=== PATIENT | female | born 1980 | race Two or more races ===

== ENCOUNTER → 2017-03-12 | Outpatient (CLI) | payer OTHER | LOC: LAB 12:01 | PROVIDERS: ATTEND Physician Assistant | DX: L63.8 Other alopecia areata (principal); L70.0 Acne vulgaris; K13.0 Diseases of lips; Z79.899 Other long term (current) drug therapy | CPT/HCPCS: 36415; 84132 ==

== ENCOUNTER → 2017-04-02 | Outpatient (CLI) | payer OTHER | LOC: LAB 15:02 | PROVIDERS: ATTEND Physician Assistant | DX: L63.8 Other alopecia areata (principal); L70.0 Acne vulgaris; K13.0 Diseases of lips; Z79.899 Other long term (current) drug therapy | CPT/HCPCS: 36415; 84132 ==

== ENCOUNTER → 2017-05-07 | Outpatient (CLI) | payer OTHER ==
[2017-05-07 11:09] LABS: ABSOLUTE BASOPHILS # (AUTO) 0.1 10^3/uL (0.0-0.2); ABSOLUTE EOSINOPHILS # (AUTO) 0.1 10^3/uL (0.0-0.6); ABSOLUTE LYMPHOCYTES (AUTO) 1.7 10^3/uL (0.5-4.7); ABSOLUTE MONOCYTES (AUTO) 0.5 10^3/uL (0.1-1.4); ABSOLUTE NEUT (AUTO) 3.4 10^3/uL (1.7-8.2); BASOPHILS % (AUTO) 1.1 % (0-2); EOSINOPHILS % (AUTO) 2.2 % (0-6); HEMATOCRIT 36.3 % (36.0-47.0); HEMOGLOBIN 12.4 g/dL (12.0-15.5); HGB HCT DIFFERENCE 0.9; LYMPHOCYTES % (AUTO) 29.6 % (13-45); MEAN CORPUSCULAR HEMOGLOBIN 31.3 pg (27.0-33.4); MEAN CORPUSCULAR HGB CONC 34.3 g/dL (32.0-36.0); MEAN CORPUSCULAR VOLUME 91 fl (80-97); MONOCYTES % (AUTO) 8.3 % (3-13); RED BLOOD COUNT 3.98 10^6/uL (3.72-5.28); RED CELL DISTRIBUTION WIDTH 12.8 % (11.5-14.0); SEGMENTED NEUTROPHILS % (AUTO) 58.8 % (42-78); WHITE BLOOD COUNT 5.7 10^3/uL (4.0-10.5)
[2017-05-07 11:30] LABS: ALANINE AMINOTRANSFERASE 25 U/L (9-52); ALBUMIN 4.5 g/dL (3.5-5.0); ALKALINE PHOSPHATASE 46 U/L (38-126); ANION GAP 9 (5-19); ASPARTATE AMINO TRANSFERASE 15 U/L (14-36); BILIRUBIN,DIRECT 0.2 mg/dL (0.0-0.4); BILIRUBIN,TOTAL 0.6 mg/dL (0.2-1.3); BLOOD UREA NITROGEN 11 mg/dL (7-20); CALCIUM 9.6 mg/dL (8.4-10.2); CARBON DIOXIDE 27 mmol/L (22-30); CHLORIDE 103 mmol/L (98-107); CREATINE KINASE 54 U/L (30-135); CREATININE RESULT 0.64 mg/dL (0.52-1.25); GLUCOSE 87 mg/dL (75-110); POTASSIUM 4.1 mmol/L (3.6-5.0); SODIUM 139.3 mmol/L (137-145); TOTAL PROTEIN 7.6 g/dL (6.3-8.2)
[2017-05-07 11:31] LABS: C-REACTIVE PROTEIN < 5.0 mg/L (<10.0)
[2017-05-07 11:47] LABS: ERYTHROCYTE SEDIMENTATION RATE 27 mm/hr (0-20)
[2017-05-09 07:12] LABS: VITAMIN D 25-HYDROXY 25.5 ng/mL (30.0-100.0)
[2017-05-09 13:38] LABS: ANTI-SS-B AB SJOGREN'S <0.2 AI (0.0-0.9)
[2017-05-09 13:55] LABS: DNA DOUBLE STRAND ANTIBODY <1 IU/mL (0-9)
== END ==
LOC: LAB 09:36
PROVIDERS: ATTEND Internal Medicine Rheumatology
DX: Z79.899 Other long term (current) drug therapy (principal); K13.0 Diseases of lips; L63.8 Other alopecia areata; L70.0 Acne vulgaris
CPT/HCPCS: 36415; 80053; 82306; 82550; 84132; 85025; 85652; 86038; 86140; 86200; 86225; 86235; 86430

== ENCOUNTER → 2017-08-13 | Outpatient (CLI) | payer OTHER | LOC: LAB 15:17 | PROVIDERS: ATTEND Physician Assistant | DX: L70.0 Acne vulgaris (principal); K13.0 Diseases of lips; Z79.899 Other long term (current) drug therapy | CPT/HCPCS: 36415; 84132 ==

== ENCOUNTER → 2017-09-12 | Outpatient (CLI) | payer OTHER | LOC: OD 13:39 | PROVIDERS: ATTEND Physician Assistant | DX: L70.0 Acne vulgaris (principal); K13.0 Diseases of lips; Z79.899 Other long term (current) drug therapy | CPT/HCPCS: 36415; 84132 ==

== ENCOUNTER → 2018-09-26 | Outpatient (CLI) | payer OTHER | LOC: DACC 19:09 | PROVIDERS: ATTEND Physician Assistant | DX: L70.8 Other acne (principal); Z79.899 Other long term (current) drug therapy | CPT/HCPCS: 36415; 84132 ==